=== PATIENT | male | born 1940 | race Caucasian/White ===

== ENCOUNTER 2017-01-17 09:30 | Outpatient (RCR) | payer BC | END 2017-01-17 10:00 | disposition home or self-care (01) | LOC: OT 09:30 | DX: M25.521 Pain in right elbow (principal) ==

== ENCOUNTER 2021-07-11 08:00 | Outpatient (RCR) | payer MEDICARE, OTHER | END 2021-07-23 | disposition still patient (30) | LOC: PT | DX: M79.602 Pain in left arm (principal); E11.9 Type 2 diabetes mellitus without complications; I10 Essential (primary) hypertension; E78.00 Pure hypercholesterolemia, unspecified; E11.21 Type 2 diabetes mellitus with diabetic nephropathy; E11.22 Type 2 diabetes mellitus with diabetic chronic kidney disease; N18.31 Chronic kidney disease, stage 3a; D63.1 Anemia in chronic kidney disease ==

== ENCOUNTER 2021-07-25 08:30 | Outpatient (RCR) | payer MEDICARE, OTHER | END 2021-08-23 | disposition still patient (30) | LOC: PT | DX: M79.602 Pain in left arm (principal); E11.9 Type 2 diabetes mellitus without complications; I10 Essential (primary) hypertension; E78.00 Pure hypercholesterolemia, unspecified; E11.21 Type 2 diabetes mellitus with diabetic nephropathy; E11.22 Type 2 diabetes mellitus with diabetic chronic kidney disease; N18.31 Chronic kidney disease, stage 3a; D63.1 Anemia in chronic kidney disease ==

== ENCOUNTER 2022-10-24 08:00 | Outpatient (RCR) | payer MEDICARE, OTHER | END 2022-11-23 | disposition home or self-care (01) | LOC: PT | DX: Z96.611 Presence of right artificial shoulder joint (principal) ==

== ENCOUNTER 2023-11-27 08:16 | Outpatient (RCR) | payer MEDICARE, OTHER | END 2023-12-19 10:19 | disposition home or self-care (01) | LOC: PT 08:16 | DX: M79.641 Pain in right hand (principal); M79.642 Pain in left hand; M79.604 Pain in right leg; M79.605 Pain in left leg; R29.6 Repeated falls ==

== ENCOUNTER 2023-11-27 08:17 | Outpatient (RCR) | payer MEDICARE, OTHER | END 2023-12-19 10:20 | disposition home or self-care (01) | LOC: OT 08:17 | DX: M79.641 Pain in right hand (principal); M79.642 Pain in left hand; M79.604 Pain in right leg; M79.605 Pain in left leg; R29.6 Repeated falls ==